=== PATIENT | female | born 1950 | race Caucasian/White ===

== ENCOUNTER 2021-06-23 14:35 | Emergency (ER) | payer OTHER ==
[2021-06-23 18:31] LABS: BASOPHIL 0.5 % (0-2); EOSINOPHIL 0.7 % (0-7); HCT 40.9 % (37.0-47.0); HGB 14.1 g/dl (12.5-16.0); LYMPHOCYTE 18.3 % (15-48); MCH 30.7 pg (25.0-31.0); MCHC 34.5 g/dL (32.0-36.0); MCV 89.1 fL (78.0-100.0); MONOCYTE 8.2 % (0-12); MPV 10.4 fL (6.0-9.5); NEUTROPHIL 71.9 % (41-80); NRBC 0; PLT 276 K/uL (150-400); RBC 4.59 M/uL (4.20-5.40); RDW 11.7 % (11.5-14.0); WBC 8.5 K/uL (4.0-10.5)
[2021-06-23 18:39] LABS: BILIRUBIN NEGATIVE (NEGATIVE); BLOOD NEGATIVE Ery/uL (NEGATIVE); CLARITY CLEAR (CLEAR); COLOR YELLOW (YELLOW); GLUCOSE (U) NORMAL (NORMAL); LEUKOCYTES TRACE Leu/uL (NEGATIVE); NITRITE NEGATIVE (NEGATIVE); PROTEIN NEGATIVE (NEGATIVE); SPECIFIC GRAVITY <=1.005 (1.001-1.030); UROBILINOGEN 0.2 mg/dL (0.2-1.0)
[2021-06-23 18:54] LABS: ALBUMIN 4.1 g/dL (3.4-5.0); BILIRUBIN - TOTAL 0.7 mg/dL (0.2-1.0); BUN/CREAT RATIO (CALC) 12.1 RATIO; CREATININE 0.91 mg/dL (0.51-0.95); GLOBULIN (CALCULATION) 3.1 g/dL; TOTAL PROTEIN 7.2 g/dL (6.4-8.2)
[2021-06-23 19:36] LABS: SQUAMOUS EPITHELIAL CELLS RARE; URINARY RBC RARE
[2021-06-23] MEDS ORDERED: ZOFRAN4 M1 PO (20:14)
== END 2021-06-23 20:29 | disposition home or self-care (01) ==
LOC: FER 14:35
PROVIDERS: Physician Assistant
DX: R11.0 Nausea (principal); R19.7 Diarrhea, unspecified; M79.10 Myalgia, unspecified site; E87.1 Hypo-osmolality and hyponatremia; I48.91 Unspecified atrial fibrillation; I10 Essential (primary) hypertension; Z88.5 Allergy status to narcotic agent; Z79.899 Other long term (current) drug therapy
CPT/HCPCS: 36415; 80053; 81001; 85025; J2405; J7040

== ENCOUNTER 2021-07-29 20:27 | Day surgery (SDCO) | payer OTHER ==
[~2021-07-29] VITALS: Ht 172.7 cm; Wt 87.8 kg
[~2021-07-29 20:27] MED LIST: ZOFRAN4 M1 PO
[2021-07-29 21:18] LABS: BASOPHIL 0.4 % (0-2); EOSINOPHIL 0.4 % (0-7); HCT 36.4 % (37.0-47.0); HGB 13.4 g/dl (12.5-16.0); LYMPHOCYTE 14.2 % (15-48); MCH 31.4 pg (25.0-31.0); MCHC 36.8 g/dL (32.0-36.0); MCV 85.2 fL (78.0-100.0); MONOCYTE 7.1 % (0-12); MPV 9.2 fL (6.0-9.5); NEUTROPHIL 77.5 % (41-80); NRBC 0; PLT 254 K/uL (150-400); RBC 4.27 M/uL (4.20-5.40); RDW 11.1 % (11.5-14.0); WBC 9.3 K/uL (4.0-10.5)
[2021-07-29 21:45] LABS: LACTIC ACID 2.1 mmol/L (0.4-1.9)
[2021-07-29 21:46] LABS: ALBUMIN 3.8 g/dL (3.4-5.0); BILIRUBIN - TOTAL 0.9 mg/dL (0.2-1.0); BUN/CREAT RATIO (CALC) 14.3 RATIO; CREATININE 0.63 mg/dL (0.51-0.95); GLOBULIN (CALCULATION) 2.5 g/dL; PHOSPHORUS 2.3 mg/dL (2.6-4.7); POTASSIUM 3.5 mmol/L (3.5-5.1); TOTAL PROTEIN 6.3 g/dL (6.4-8.2)
[2021-07-29 21:54] LABS: CORONAVIRUS 2019 SARS-COV-2 NEGATIVE (NEGATIVE); INFLUENZA A NAA NEGATIVE (NEGATIVE)
[2021-07-29 22:00] LABS: MAGNESIUM 1.8 mg/dL (1.8-2.4)
[2021-07-30 00:44] LABS: BUN/CREAT RATIO (CALC) 11.3 RATIO; CREATININE 0.62 mg/dL (0.51-0.95)
[2021-07-30 05:59] LABS: BUN/CREAT RATIO (CALC) 10.2 RATIO; CREATININE 0.49 mg/dL (0.51-0.95); POTASSIUM 3.7 mmol/L (3.5-5.1)
[2021-07-30] MEDS ORDERED: PROZAC20 MG PO (09:03)
[2021-07-31 06:00] LABS: BASOPHIL 0.4 % (0-2); EOSINOPHIL 0.9 % (0-7); HCT 37.1 % (37.0-47.0); HGB 12.9 g/dl (12.5-16.0); LYMPHOCYTE 24.9 % (15-48); MCH 31.4 pg (25.0-31.0); MCHC 34.8 g/dL (32.0-36.0); MONOCYTE 13.9 % (0-12); MPV 9.4 fL (6.0-9.5); NEUTROPHIL 59.7 % (41-80); NRBC 0; PLT 217 K/uL (150-400); RBC 4.11 M/uL (4.20-5.40); RDW 12.2 % (11.5-14.0); WBC 4.5 K/uL (4.0-10.5)
[2021-07-31 06:20] LABS: BUN/CREAT RATIO (CALC) 12.3 RATIO; CREATININE 0.81 mg/dL (0.51-0.95); MAGNESIUM 2.3 mg/dL (1.8-2.4); POTASSIUM 3.8 mmol/L (3.5-5.1)
[2021-07-31 06:40] LABS: MCV 90.3 fL (78.0-100.0)
[2021-07-31] MEDS ORDERED: ATENOLOL25 MG PO (07:04)
[2021-07-31] MEDS ORDERED: NORVASC10 MG PO (07:05)
== END 2021-07-31 12:25 | disposition home or self-care (01) ==
LOC: FER 20:27 → FMS 07-30 07:24
PROVIDERS: Emergency Medicine Emergency Medical Services; ADMIT Internal Medicine
DX: E87.1 Hypo-osmolality and hyponatremia (principal); I48.0 Paroxysmal atrial fibrillation; I10 Essential (primary) hypertension; K57.30 Diverticulosis of large intestine without perforation or abscess without bleeding; K44.9 Diaphragmatic hernia without obstruction or gangrene; F32.9 Major depressive disorder, single episode, unspecified; K21.9 Gastro-esophageal reflux disease without esophagitis; Z86.16 Personal history of COVID-19; Z88.5 Allergy status to narcotic agent; Z79.82 Long term (current) use of aspirin; Z79.899 Other long term (current) drug therapy; Z20.822 Contact with and (suspected) exposure to COVID-19
CPT/HCPCS: 36415; 71045; 80048; 80053; 83605; 83690; 83735; 84100; 84145; 84443; 84484; 85025; 93005; G0378; J2550; J7030; J7120; Q9967; U0002